=== PATIENT | female | born 1985 | race Two or more races ===

== ENCOUNTER 2019-04-21 18:32 | Emergency (ER) | payer BC, MEDICAID ==
--- NOTE | 2019-04-21 19:08 | ER Document Report ---
ED Medical Screen (RME) - General Chief Complaint: Eye Problem Stated Complaint: LEFT EYE PAIN,IRRITATION Time Seen by Provider: 04/21/19 19:03 Mode of Arrival: Ambulatory Information source: Patient Notes: 33-year-old female presented to ED with left eye pain she woke up with this morning. She states she did have clear drainage this morning. She took her contact lens out left and out all day and went to work. 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 She states 1 of the girls at the office flushed her eye with saline. She states now it is very difficult to open her eyes because she has been working all day and all the lights. She did not go to an jackhammer splitter operator today. She states she is a former smoker but no longer smokes she drinks monthly no illicit drugs lives alone with her 3 kids. I have greeted and performed a rapid initial assessment of this patient. A comprehensive ED assessment and evaluation of the patient, analysis of test results and completion of medical decision making process will be conducted by an additional ED providers. - Related Data Allergies/Adverse Reactions: No Known Allergies Allergy (Unverified 02/27/11 05:47) Physical Exam - Vital signs Vitals: Temp Pulse Resp BP Pulse Ox 98.5 F 99 16 131/86 H 100 04/21/19 18:39 04/21/19 18:39 04/21/19 18:39 04/21/19 18:39 04/21/19 18:39 Course - Vital Signs Vital signs: Temp Pulse Resp BP Pulse Ox 98.5 F 99 16 131/86 H 100 04/21/19 18:39 04/21/19 18:39 04/21/19 18:39 04/21/19 18:39 04/21/19 18:39
[2019-04-21] MEDS ORDERED: TETRACAINE HCL 0.5% OPH SOLN 4 ML OS ONE (19:51)
[2019-04-21] MEDS ORDERED: BESIFLOXACIN HCL 0.6% OPH SUSP 5 ML BOTTLE OS ONE (20:19)
[2019-04-21] MEDS ORDERED: KETOROLAC TROMETHAMINE 0.45% 4 DROP/0.4 ML DROPERETTE OS ONE (20:19)
--- NOTE | 2019-04-21 20:23 | ER Document Report ---
HPI - HPI Time Seen by Provider: 04/21/19 19:03 Pain Level: 4 Notes: Patient is an otherwise healthy 33-year-old female presenting to the emergency department with chief complaint of left eye pain. Patient reports the pain started upon waking. Patient reports she wears contact lenses, states she has pain at about 12:00 location of the left eye. She states the last time she had her contacts in was this morning. She denies any direct trauma to the eye. She reports her eye has been draining clear fluid all day. She states she has been working through the day and was unable to leave work. She denies any itching in the eye, she states it feels painful. She denies any blurred vision. - CONSTITUTIONAL Constitutional: DENIES: Fever, Chills Past Medical History - General Information source: Patient - Social History Smoking Status: Former Smoker Family History: Reviewed & Not Pertinent Patient has suicidal ideation: No Patient has homicidal ideation: No - Medical History Medical History: Negative Surgical Hx: Negative - Immunizations Immunizations up to date: Yes Vertical Provider Document - CONSTITUTIONAL Notes: PHYSICAL EXAMINATION: GENERAL: Well-appearing, well-nourished and in no acute distress. HEAD: Atraumatic, normocephalic. EYES: Pupils equal round extraocular movements intact, conjunctiva are normal. Uptake of fluorescein at 12:00 to 1:00 location of left eye, no obvious foreign body noted. No Jeet sign. ENT: Nares patent NECK: Normal range of motion LUNGS: No respiratory distress Musculoskeletal: Normal range of motion NEUROLOGICAL: Normal speech, normal gait. PSYCH: Normal mood, normal affect. SKIN: Warm, Dry, normal turgor, no rashes or lesions noted. - INFECTION CONTROL TRAVEL OUTSIDE OF THE [place] IN LAST 30 DAYS: No Course - Re-evaluation Re-evalutation: Patient with small corneal abrasion. She will be started on Besivance drops since she wears contact lenses. She does have an parking lot spotter, she will call them Wednesday morning I also gave her the phone number for [facility] [place], Dr. Apple in case she is unable to get in with her primary parking lot spotter. Stressed the importance of continuing the eyedrops even if her symptoms resolve. Patient understands no contact lenses until seen by ophthalmology. - Vital Signs Vital signs: Temp Pulse Resp BP Pulse Ox 98.5 F 99 16 131/86 H 100 04/21/19 18:39 04/21/19 18:39 04/21/19 18:39 04/21/19 18:39 04/21/19 18:39 Discharge - Discharge Clinical Impression: Corneal abrasion due to contact lens Qualifiers: Laterality: left Qualified Code(s): H18.822 - Corneal disorder due to contact lens, left eye Condition: Stable Disposition: HOME, SELF-CARE Additional Instructions: Please apply 1 drop of the besifloxacin eyedrops to the affected eye 3 times daily for 7 days. Use the ketorolac drops, you can apply 1 drop to the affected eye every 6 hours for pain. It is very important that you follow-up with the eye doctor on Wednesday at the latest. Do not wear your contacts. Let the eye doctor know you were seen in the emergency department and diagnosed with a corneal abrasion and that you usually wear contact lenses. Bring the eyedrops with you to your appointment so they know what we started you on. Forms: Return to Work Referrals: KADY APPLE MD [ACTIVE STAFF] - Follow up as needed
[2019-04-21 20:41] VITALS: BP 118/79
[2019-04-21] MEDS ORDERED: BUTALB/ACETAMINOPHEN/CAFFEINE 1 TAB EACH PO ONE (20:42)
[2019-04-21] MEDS ORDERED: BESIFLOXACIN HCL 0.6% OPH SUSP 5 ML BOTTLE ONE (20:49)
== END 2019-04-21 21:41 | disposition home or self-care (01) ==
LOC: ER 18:32
DX: H18.822 Corneal disorder due to contact lens, left eye (principal); H57.12 Ocular pain, left eye; Z87.891 Personal history of nicotine dependence
CPT/HCPCS: 99283; J3490 ×2